=== PATIENT | male | born 1985 | race Caucasian/White ===

== ENCOUNTER 2017-07-28 23:14 | Emergency (ER) | payer SELFPAY ==
[~2017-07-28] VITALS: Ht 177.8 cm; Wt 95.0 kg
[~2017-07-28 23:14] MED LIST: Z.0.NO CURRENT MEDS
[2017-07-28 23:20] VITALS: BP 122/64; PULSE 132; RESP 13; TEMP 98.9; O2SAT 94
[2017-07-28] MEDS ORDERED: SODIUM CHLOR 0.9% 1000 ML INJ 1,000 ML IV SCH (23:28)
[2017-07-28] MEDS ORDERED: SODIUM CHLORIDE 0.9% FLUSH 10 ML FLUSH IV FLUSH PRN (23:30)
--- NOTE | 2017-07-29 00:07 | PD ---
HPI Chief Complaint: OD/ Ingestion Time Seen by Provider: 23:28 Travel History International Travel<30 days: No Contact w/Intl Traveler<30days: No Traveled to known affect area: No History of Present Illness HPI Patient is a 31-year-old male presents emergency department after apparent heroin overdose. 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 He states that he think he just fell asleep in a chair. EMS reports that he was sluggish to respond and had a fairly low saturation and 0.4 of Narcan was given in route which call us his reversal of mental status. Patient has no complaints currently and is eager to get home because he has to make arrangements for his living situation. He denies any chest pain shortness breath abdominal pain nausea vomiting diarrhea constipation. Denies any suicidal ideation or homicidal ideation. Symptoms are severe, started tonight, resolved, context and associated signs symptoms as above PFSH Past Medical History Diminished Hearing: No Hypertension: Yes Insomnia: Yes Immunizations Current: Yes Menopausal: No Past Surgical History Surgical History: No Previous Surgery Social History Alcohol Use: Yes (SOCIALLY) Tobacco Use: Yes (/ ppd) Substance Use: Yes (heroin) Allergies-Medications (Allergen,Severity, Reaction): Coded Allergies: codeine (Unverified Allergy, Severe, UPSET STOMACK, 12/08/16) penicillin G (Unverified Allergy, Severe, Anaphylaxis, 12/08/16) Reported Meds & Prescriptions Reported Meds & Active Scripts Active Reported No Current Meds (Miscellaneous Medication) Misc Review of Systems Except as stated in HPI: all other systems reviewed are Neg Physical Exam Narrative GENERAL: Well-developed well-nourished no obvious distress SKIN: Focused skin assessment warm/dry. HEAD: Atraumatic. Normocephalic. EYES: Pupils equal and round. No scleral icterus. No injection or drainage. ENT: No nasal bleeding or discharge. Mucous membranes pink and moist. NECK: Trachea midline. No JVD. CARDIOVASCULAR: Regular rhythm with tachycardia. No murmur appreciated. RESPIRATORY: No accessory muscle use. Clear to auscultation. Breath sounds equal bilaterally. GASTROINTESTINAL: Abdomen soft, non-tender, nondistended. Hepatic and splenic margins not palpable. MUSCULOSKELETAL: No obvious deformities. No clubbing. No cyanosis. No edema. NEUROLOGICAL: Awake and alert. No obvious cranial nerve deficits. Motor grossly within normal limits. Normal speech. PSYCHIATRIC: Somewhat heightened affect and behavior, calming over time while in the emergency department. Denies suicidal or homicidal ideation peer Data Data Last Documented VS Vital Signs Date Time Temp Pulse Resp B/P (MAP) Pulse Ox O2 Delivery O2 Flow Rate FiO2 07/29/17 04:30 07/29/17 01:36 118 18 98 Nasal Cannula 2.00 07/28/17 23:20 98.9 Orders Orders Basic Metabolic Panel (Bmp) (07/28/17 23:28) Complete Blood Count With Diff (07/28/17 23:28) Creatine Kinase (Cpk) (07/28/17 23:28) Blood Glucose (07/28/17 23:28) Ecg Monitoring (07/28/17 23:28) Iv Access Insert/Monitor (07/28/17 23:28) Oximetry (07/28/17 23:28) Sodium Chloride 0.9% Flush (Ns Flush) (07/28/17 23:30) Sodium Chlor 0.9% 1000 Ml Inj (Ns 1000 M (07/28/17 23:28) Sodium Chlor 0.9% 1000 Ml Inj (Ns 1000 M (07/29/17 00:15) Ed Discharge Order (07/29/17 04:04) Electrocardiogram (07/28/17 23:22) Labs Laboratory Tests Test 07/28/17 23:30 White Blood Count 7.7 TH/MM3 Red Blood Count 5.29 MIL/MM3 Hemoglobin 16.4 GM/DL Hematocrit 47.8 % Mean Corpuscular Volume 90.3 FL Mean Corpuscular Hemoglobin 30.9 PG Mean Corpuscular Hemoglobin Concent 34.3 % Red Cell Distribution Width 14.1 % Platelet Count 242 TH/MM3 Mean Platelet Volume 7.4 FL Neutrophils (%) (Auto) 71.2 % Lymphocytes (%) (Auto) 21.4 % Monocytes (%) (Auto) 6.8 % Eosinophils (%) (Auto) 0.1 % Basophils (%) (Auto) 0.5 % Neutrophils # (Auto) 5.5 TH/MM3 Lymphocytes # (Auto) 1.6 TH/MM3 Monocytes # (Auto) 0.5 TH/MM3 Eosinophils # (Auto) 0.0 TH/MM3 Basophils # (Auto) 0.0 TH/MM3 CBC Comment DIFF FINAL Differential Comment Blood Urea Nitrogen 14 MG/DL Creatinine 1.17 MG/DL Random Glucose 208 MG/DL Calcium Level 8.3 MG/DL Sodium Level 141 MEQ/L Potassium Level 3.4 MEQ/L Chloride Level 106 MEQ/L Carbon Dioxide Level 25.6 MEQ/L Anion Gap 9 MEQ/L Estimat Glomerular Filtration Rate 73 ML/MIN Total Creatine Kinase 207 U/L [facility] Medical Decision Making Medical Screen Exam Complete: Yes Emergency Medical Condition: Yes Differential Diagnosis Heroin overdose, dehydration, rhabdomyolysis, Narrative Course Patient room to the emergency department, EKG is reassuring, basic labs are reassuring, given 2 L normal saline, was observed in the emergency department for approximately 4 hours and did not require any repeat dosing. He is alert and awake and cooperative would like to be discharged. His tachycardia is resolved after 2 L of fluid. There is no indication to hold this patient against his will any longer. He is medically stable for discharge. He is arranging for a safe ride home, discussed abstinence from dangerous illicit substances on the street, discussed smoking cessation. He is referred to [facility] for further evaluation. Diagnosis Primary Impression: Opiate overdose Referrals: [facility] Disposition: 01 DISCHARGE HOME Condition: Stable Luis Ness MD Jul 29, 2017 00:07
[2017-07-29] MEDS ORDERED: SODIUM CHLOR 0.9% 1000 ML INJ 1,000 ML IV ONE (00:15)
[2017-07-29 01:36] VITALS: BP 137/76; PULSE 118; RESP 18; O2SAT 98
[2017-07-29 02:10] LABS: HEMATOCRIT 47.8 % (39.0-51.0); HEMOGLOBIN 16.4 GM/DL (13.0-17.0); MEAN CELL VOLUME 90.3 FL (80.0-100.0); MEAN CORPUSCULAR HEMOGLOBIN 30.9 PG (27.0-34.0); MEAN CORPUSCULAR HGB CONC 34.3 % (32.0-36.0); MEAN PLATELET VOLUME 7.4 FL (7.0-11.0); PLATELET COUNT 242 TH/MM3 (150-450); RED BLOOD COUNT 5.29 MIL/MM3 (4.50-5.90); RED CELL DISTRIBUTION WIDTH 14.1 % (11.6-17.2); WHITE BLOOD COUNT 7.7 TH/MM3 (4.0-11.0)
[2017-07-29 02:11] LABS: AUTOMATED NEUTROPHIL # 5.5 TH/MM3 (1.8-7.7); BASOPHIL % 0.5 % (0.0-2.0); EOSINOPHIL % 0.1 % (0.0-4.0); LYMPH % 21.4 % (9.0-44.0); LYMPHOCYTE # 1.6 TH/MM3 (1.0-4.8); MONO % 6.8 % (0.0-8.0); MONOCYTE # 0.5 TH/MM3 (0-0.9); NEUT % 71.2 % (16.0-70.0)
[2017-07-29 02:21] LABS: BICARBONATE 25.6 MEQ/L (21.0-32.0); CALCIUM 8.3 MG/DL (8.5-10.1); CREATININE 1.17 MG/DL (0.60-1.30)
--- NOTE | 2017-07-30 09:54 | EKG ---
Date Performed: 07/28/2017 Time Performed: 23:22:56 PTAGE: 31 years EKG: SINUS TACHYCARDIA NONSPECIFIC T-WAVE ABNORMALITY ABNORMAL RHYTHM ECG PREVIOUS TRACING 02/02/16 Since the prior tracing, the sinus tachycardia and the minimal nonspe cific T-wave changes are new. DOCTOR: Elaina Perea Interpretating Date/Time 07/30/2017 09:53:38
== END 2017-07-29 04:40 | disposition home or self-care (01) ==
LOC: NEPE 23:14
DX: T40.1X1A Poisoning by heroin, accidental (unintentional), initial encounter (principal); F17.200 Nicotine dependence, unspecified, uncomplicated; R00.0 Tachycardia, unspecified
CPT/HCPCS: 80048; 82550; 85025; 93005; 96360; 96361; 99284; J7030